=== PATIENT | female | born 1985 | race Two or more races ===

== ENCOUNTER 2016-11-16 09:12 | Observation (INO) | payer BC ==
--- NOTE | 2016-11-16 07:25 | PDGENHP ---
History and Physical History and Physical: Assessment and Plan: 1. Endometriosis determined by laparoscopy Melina has chronic pelvic pain mostly localized to the left lower quadrant. She was found to have several implants of endometriosis at the time of her hysterectomy last year. She does not wish to try Lupron or control pills again given the side effects she had previously. She also developed side effects on an antidepressant. We again reviewed all conservative and surgical options. At the end of our discussion, she is interested in surgical exploration. I will excise all lesions endometriosis seen. We have discussed the pros and cons of removing her remaining ovary depending upon other pathology identified. 2. Pelvic pain in female 3. Dyspareunia in female Subjective: Patient ID: Melina López is a 31 y.o. female who presents to [facility] for endometriosis. RAMONA Summers is a 31-year-old, para 2 woman who presents to discuss endometriosis. Both of her children were born vaginally. In 2014 she underwent a hysteroscopic removal of an imbedded Mirena IUD. In January of 2015 she developed pelvic pain and a persistent right ovarian cyst. Dr. Gaytan performed a robotic cystectomy. The pathology returned as a benign serous cystadenoma. No mention of endometriosis was noted. She then developed heavy menses and and dysmenorrhea and underwent a robotic hysterectomy with bilateral salpingectomy and right oophorectomy on 08/16/15. She was found to have endometriosis on the back of her uterus. Her left ovary remains. She was started on Lupron in August of 2015. She then was doing fairly well until May of 2016 when she developed recurrence of pain. This pain was slightly different than her pain before her hysterectomy. She had a normal pelvic ultrasound. Gastroenterology ordered a CT scan, which was reportedly normal. He recommended a colonoscopy, however, she declined. On September [address] Gaytan who recommended Lupron, control pills, or an SSRI. As mentioned, her pain became much more severe in May. It is localized in the left lower quadrant. The pain occurs with eating and when her bladder is full. She feels a constant pelvic pressure. She developed a squeezing sensation when her pain worsens. When it is most severe, it will radiate to her right hip and low-back. She does have some dyschezia, which feels like a different pain. She also has dyspareunia which feels in a similar left lower quadrant area. She has tried acupuncture twice. She lives in [place]. 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 She and her and for 16 years. PastMedicalHistory Past Medical History: Diagnosis Date Endometriosis PastSurgicalHistory Past Surgical History: Procedure Laterality Date DILATION AND CURETTAGE OF UTERUS EMBEDDED IUD REMOVAL HYSTERECTOMY 2016 Total- left ovary remains OVARIAN CYST REMOVAL PELVIC LAPAROSCOPY CURRENT MEDICATIONS: No current outpatient prescriptions on file. No current facility-administered medications for this visit. ALLERGIES: Review of patient's allergies indicates no known allergies. I have reviewed, verified and agree with the past medical, surgical, , family, social and ROS history as documented by the RN today. Review of Systems Objective: Vital Signs: Visit Vitals BP 112/64 Pulse 58 Temp 36.3 C (97.4 F) Resp 14 Ht 1.613 m (5' 3.5") Wt 88.7 kg (195 lb 9.6 oz) SpO2 97% BMI 34.11 kg/m2 Physical Exam Gen: This is an alert, well developed woman in no distress. Neuro: She moves all extremities. Psych: She is appropriate, oriented, with normal affect. Neck: No thyroid enlargement, adenopathy, or tenderness. Lungs: Clear to ascultation, no wheezes or rales. Heart: Regular rate and rhythm without obvious murmurs. Abdomen: Soft, non-tender, without guarding, rebound, or masses. Extremities: No edema or cyanosis. Pelvic: Normal external genitalia. Non-gaping introitus, vagina without discharge, adequately estrogenized, no significant prolapse. She is tender along both levator ani muscles. The vaginal apex is exquisitely tender limiting the bimanual exam. The posterior cul-de-sac is tender. All tender areas refer pain to the left lower quadrant. No obvious nodularity is palpable. DATA: I have reviewed patient's outside medical records. Summary findings include as noted above. TIME/COMMUNICATION: I personally spent a total of 50 minutes. Of that 40 minutes was counseling/ coordination of patient's care. See my note above for details. Rhett King MD Board Certified Female Pelvic Medicine and Reconstructive Surgery Director of Minimally Invasive Gynecologic Surgery, [facility] in Minimally Invasive Gynecologic Surgery Designee Instructions After Visit Summary (Printed 10/04/2016) Medications Reviewed As Of This Encounter Reviewed by Rhett King MD (Physician) on 11/15/16 at 2153 Medication Order Taking? Sig Documenting Provider Last Dose Status No Medications to Display Additional Documentation Vitals: BP 112/64 Pulse 58 Temp 36.3 C (97.4 F) Resp 14 Ht 1.613 m (5' 3.5") Wt 88.7 kg (195 lb 9.6 oz) SpO2 97% BMI 34.11 kg/m2 BSA 1.99 m2 More Vitals Flowsheets: Travel & Exposure Screen, HT/WT & Screenings, Custom Formula Data, Anthropometrics, Vitals & Pain, Vitals Reassessment ...(4 more) SmartForms: AMB PATIENT VISIT EVENTS Encounter Info: Billing Info, History, Allergies, Detailed Report, All Encounter Vitals Communications Letter sent to Zen Watson PT and 2 others Sent 11/15/2016 Orders Placed None Medication Changes None Medication List Visit Diagnoses Endometriosis determined by laparoscopy Pelvic pain in female Dyspareunia in female Problem List
[~2016-11-16 09:12] MED LIST: PHENAZOPYRIDINE HCL 200 MG TAB PO ONE; PHENAZOPYRIDINE HCL 200 MG TAB PO SCH; ceFAZolin 2 GM/DEXTROSE 100 ML IV ONE
[2016-11-16] MEDS ORDERED: LR 1,000 ML IV ONE (09:31)
[2016-11-16] MEDS ORDERED: LIDOCAINE 1% 2 ML INJ ID PRN (09:31)
[2016-11-16] MEDS ORDERED: LIDOCAINE 1% 2 ML INJ ONE (09:39)
[2016-11-16] MEDS ORDERED: PHENAZOPYRIDINE HCL 200 MG TAB ONE (09:46)
[2016-11-16] MEDS ORDERED: PROPOFOL 200 MG/20 ML VIAL ONE (10:19)
[2016-11-16] MEDS ORDERED: ROCURONIUM 100 MG/10 ML VIAL ONE (10:19)
[2016-11-16] MEDS ORDERED: MIDAZOLAM 2 MG/2 ML VIAL ONE (10:19)
[2016-11-16] MEDS ORDERED: DEXAMETHASONE 4 MG/ML VIAL ONE ×2 (10:19)
[2016-11-16] MEDS ORDERED: METOCLOPRAMIDE 10 MG/2 ML VIAL ONE (10:19)
[2016-11-16] MEDS ORDERED: BUPIVACAINE/EPI 0.5% 30 ML SDV ONE (10:30)
[2016-11-16] MEDS ORDERED: ONDANSETRON 4 MG/2 ML VIAL ONE ×2 (10:54→20:27)
--- NOTE | 2016-11-16 11:08 | PDANEPAE ---
ANE Past Medical History - Cardiovascular History Hx Hypertension: No Hx Arrhythmias: No Hx Chest Pain: No Hx Coronary Artery / Peripheral Vascular Disease: No Hx CHF / Valvular Disease: No Hx Palpitations: No - Pulmonary History Hx COPD: Yes Hx Asthma/Reactive Airway Disease: No Hx Recent Upper Respiratory Infection: No Hx Oxygen in Use at Home: No - Neurologic History Hx Cerebrovascular Accident: No Hx Seizures: No Hx Dementia: No - Endocrine History Hx Diabetes: No - Renal History Hx Renal Disorders: No - Liver History Hx Hepatic Disorders: No - Neurological & Psychiatric Hx Hx Neurological and Psychiatric Disorders: No - Cancer History Hx Cancer: No - GI History Hx Gastrointestinal Disorders: Yes - Chronic Pain History Chronic Pain: No ANE Review of Systems - Exercise capacity METS (RN): 4 METS - Systems Constitutional: Reports: other (morbid obesity) Respiratory: Reports: cough, wheezing, other (current smoker, cig addiction) ANE Patient History - Allergies Allergies/Adverse Reactions: No Known Allergies Allergy (Unverified 10/14/16 13:50) - Home Medications Home Medications: NK [No Known Home Meds] 10/14/16 [Last Taken Unknown] - NPO status NPO Since - Liquids (Date): 11/16/16 NPO Since - Liquids (Time): 05:30 NPO Since - Solids (Date): 11/15/16 NPO Since - Solids (Time): 21:00 - Smoking Hx Smoking Status: Former smoker - Family Anes Hx Family Hx Anesthesia Complications: NONE ANE Labs/Vital Signs - Vital Signs Blood Pressure: 110/80 Heart Rate: 62 Respiratory Rate: 16 O2 Sat (%): 92 Height: 160.02 cm Weight: 88.451 kg ANE Physical Exam - Airway Neck exam: increased neck circumference, short neck Mallampati Score: Class 3 Mouth exam: poor dentition, small mouth opening - Pulmonary Pulmonary: reduced air movement, expiratory wheeze, rhonchi - ASA Status ASA Status: III
[2016-11-16] MEDS ORDERED: HYDROmorphONE/DILAUDID 2 MG/ML INJ ONE (12:36)
[2016-11-16] MEDS ORDERED: HYDROmorphONE/DILAUDID 1 MG/ML SYR ONE ×2 (13:00→14:04)
[2016-11-16] MEDS ORDERED: fentaNYL 100 MCG/2 ML INJ ONE ×3 (13:00→14:04)
[2016-11-16] MEDS ORDERED: MEPERIDINE 25 MG/ML SYR IVP PRN (13:01)
[2016-11-16] MEDS ORDERED: OXYCODONE/APAP 5/325 TAB PO PRN (13:01)
[2016-11-16] MEDS ORDERED: NALOXONE HCL 0.4 MG/ML INJ IVP PRN (13:01)
[2016-11-16] MEDS ORDERED: LABETALOL HCL 50 MG/10 ML SYR IVP PRN (13:01)
[2016-11-16] MEDS ORDERED: ALBUTEROL 3 ML DEYVIAL IH PRN (13:01)
[2016-11-16] MEDS ORDERED: ONDANSETRON 4 MG/2 ML VIAL IVP PRN ×2 (13:01→20:20)
[2016-11-16] MEDS ORDERED: HYDROCODONE/APAP 5/325 TAB PO PRN (13:01)
[2016-11-16] MEDS ORDERED: ACETAMINOPHEN 500 MG TAB PO PRN (13:01)
[2016-11-16] MEDS: fentaNYL 100 MCG/2 ML INJ IVP PRN ×6 (13:03→14:23)
--- NOTE | 2016-11-16 13:03 | POSTANESTH ---
Post Anesthetic Evaluation Respiratory Status: Normal, Stable Level of Consciousness/Mental Status: Can Participate in Eval Pain Control: Adequate, Prn Tx Ordered Nausea/Vomiting Control: Adequate, Prn Tx Ordered Complications Possibly Related to Anesthesia: None Noted
[2016-11-16] MEDS: HYDROmorphONE/DILAUDID 1 MG/ML SYR IVP PRN ×5 (13:05→20:41)
[2016-11-16] MEDS ORDERED: DIAZEPAM 10 MG/2 ML SYR IVP PRN (13:14)
--- NOTE | 2016-11-16 13:19 | POSTOPPROG ---
Post Op Note Date of Operation: 11/16/16 Surgeon: Rhett King Pediatric Genetic Counselor: Perri Erwin Anesthesiologist: Francis Anesthesia: GET(General Endotracheal) Pre-op Diagnosis: Endometriosis, pelvic pain Post-op Diagnosis: Same Procedure: Robotic excision of endo, bilat ureterolysis, colpopexy, bilat oophorectomy Findings: endo, ureters function at end of case Inf/Abcess present in the surg proc area at time of surgery?: No EBL: Minimal Complications: None
[2016-11-16] MEDS: HYDROCODONE/APAP 5/325 TAB PO PRN ×2 (15:55→19:58)
[2016-11-16] MEDS: KETOROLAC 30 MG/1 ML SDV IVP SCH ×2 (17:14→23:27)
[2016-11-16] MEDS: PROMETHAZINE HCL 25 MG/ML INJ IVP PRN (23:18)
[2016-11-16] MEDS: SIMETHICONE 80 MG TAB CHEW PO SCH ×2 (23:40→23:54)
[2016-11-16] MEDS: DOCUSATE SODIUM 100 MG CAP PO SCH (23:57)
[2016-11-17] MEDS: ONDANSETRON DISINTEGRATING 4 MG TAB PO PRN ×2 (02:15→08:55)
[2016-11-17] MEDS: HYDROmorphONE/DILAUDID 1 MG/ML SYR IVP PRN ×2 (02:15→04:36)
[2016-11-17] MEDS: LR 1,000 ML IV SCH ×2 (02:16→05:55)
--- NOTE | 2016-11-17 05:36 | GOP ---
[f rep st] OPERATIVE REPORT DATE OF OPERATION: 11/16/2016 SURGEON: Rhett King MD MINT MACHINE OPERATOR: Perri Erwin CFA. ANESTHESIA: General. PREOPERATIVE DIAGNOSIS: 1. Endometriosis. 2. Pelvic pain. 3. Dysmenorrhea. 4. Vaginal cuff prolapse. 5. Urinary frequency. POSTOPERATIVE DIAGNOSIS: 1. Endometriosis. 2. Pelvic pain. 3. Dysmenorrhea. 4. Vaginal cuff prolapse. 5. Urinary frequency. 6. Rectal lesion. PROCEDURE PERFORMED: 1. Robotic excision of endometriosis throughout the posterior and anterior cul-de-sacs, as well as both ovarian fossae. 2. Bilateral ureterolysis. 3. Bilateral uterosacral ligament colpopexy. 4. Bilateral oophorectomy. 5. Cystoscopy. 6. Excision of rectal lesion. FINDINGS: SPECIMENS: Pelvic peritoneum with endometriosis and bilateral ovaries. ESTIMATED BLOOD LOSS: Scant DESCRIPTION OF PROCEDURE: The patient was taken to the operating room where she was identified. Ge neral anesthesia was administered and found to be adequate. She was placed in the lithotomy positio n and prepared and draped in normal sterile fashion. A Stoddard catheter was placed in her bladder. A 1 cm infraumbilical incision was made with the scalpel. The Veress needle with the CO2 gas flowin g was advanced into the peritoneal cavity. The abdomen was then insufflated with carbon dioxide gas . The 12 mm trocar followed by the laparoscope were then inserted. The upper abdomen was unremarka ble. There was no evidence of endometriosis on either diaphragm, liver or stomach. Two lateral por ts were placed in the right and 1 in the left under direct visualization. She then was placed in Tr endelenburg position and the da Aidee robot docked on the left side. The instruments were then brou ght into the abdominal cavity under direct visualization. The patient was found to have endometriosis on both ovaries, both ovarian fossae throughout the post erior cul-de-sac along the vaginal cuff as well as the anterior cul-de-sac. Attention was first turned to the posterior cul-de-sac. The entire posterior cul-de-sac peritoneum was excised from the distal rectum all the way up to the vaginal cuff and laterally to both uterosac ral ligaments. During this dissection lesion on the distal rectum required excision. This extended approximately 50% through the muscular layer. Attention was then turned to both ovarian fossae. There was endometriosis overlying both ureters. As a result, a bilateral ureterolysis was required. The peritoneum at the pelvic brims were incised . The ureter was gently dissected free. The ureters were then lateralized them from the overlying peritoneum and endometriosis all the way down to the bladder. Once was accomplished, the entire ovarian fossa peritoneum from the uterosacral ligaments anteriorly up to the anterior pelvis was completely excised bilaterally. Both ovaries were then removed. The infundibulopelvic vessels were skeletonized, cauterized, and transected. The remaining attachments were then excised. Final ly the anterior cul-de-sac peritoneum from the incision line along the vaginal cuff anteriorly to al most the pubic symphysis was completely excised. All specimens were then sent to pathology for perm anent section. A uterosacral ligament colpopexy was performed by attaching the lateral aspects of the vaginal cuff to the ipsilateral uterosacral ligaments near their insertion into the coccygeal-sacrospinous ligame nt complexes. The pelvis was then copiously irrigated with sterile saline and hemostasis was presen t. The robot was then undocked. The fascia was closed with 0 Vicryl, skin with 4-0 Monocryl and zelaya rgical adhesive. Cystoscopy was then performed. Both ureters had vigorous jets of urine. No evidence of bladder nor urethral injury seen. No obvious pathology was seen within the bladder explaining her urinary freq uency. Anesthesia was reversed and the patient taken to PACU awake, in stable condition. COMPLICATIONS: None. DISPOSITION: Patient stable to PACU. /[id number]/MODL
[2016-11-17] MEDS: KETOROLAC 30 MG/1 ML SDV IVP SCH (05:55)
[2016-11-17] MEDS: SIMETHICONE 80 MG TAB CHEW PO SCH ×2 (06:19→15:52)
[2016-11-17] MEDS: DOCUSATE SODIUM 100 MG CAP PO SCH (06:19)
[2016-11-17] MEDS ORDERED: HYDROmorphONE/DILAUDID 2 MG TAB PO PRN (08:59)
[2016-11-17] MEDS ORDERED: ONDANSETRON DISINTEGRATING 4 MG TAB PO PRN (08:59)
[2016-11-17] MEDS ORDERED: OXYCODONE/APAP 5/325 TAB PO PRN (08:59)
[2016-11-17] MEDS ORDERED: SCOPOLAMINE HYDROBROMIDE 1.5 MG PATCH TD SCH (09:00)
[2016-11-17] MEDS ORDERED: CALCIUM CARBONATE 500 MG CHEWABLE TAB PO PRN (09:05)
--- NOTE | 2016-11-17 09:05 | SOAPPROG ---
SOAP Progress Note Assessment/Plan: Assessment: Pain normal, nausea appears to me from anesthesia and surgery. HR 80's now. Plan: 11/17/16 09:02 Try to advance diet and switch to p.o. meds for home. Likely home later today. Pt to call in 2 weeks. 11/17/16 09:04 Subjective: Complaining of nausea unable to take p.o. meds. Void x 1. Pain controlled with i.v. meds. Objective: Vital Signs Temp Pulse Resp BP Pulse Ox 36.2 C 119 H 16 132/90 H 92 11/17/16 06:04 11/17/16 06:04 11/17/16 06:04 11/17/16 06:04 11/17/16 06:04 11/16/16 11/17/16 11/18/16 05:59 05:59 05:59 Intake Total 2815 Output Total 2020 Balance 795 - Pending Discharge Pending Discharge Within 24 Hours: Yes Pending Discharge Date: 11/18/16 Pending Discharge Time: 11:00 Physical Exam - Physical Exam General Appearance: WD/WN, alert, no apparent distress Respiratory: lungs clear Cardiac/Chest: regular rate, rhythm Abdomen: normal bowel sounds, non-tender, soft (Incisions clean, dry, and intact.) ICD10 Worksheet Patient Problems: Problems Problem Status Onset Endometriosis of pelvic peritoneum Acute - ICD10 Problem Qualifiers (1) Endometriosis of pelvic peritoneum
[2016-11-17] MEDS: PROMETHAZINE HCL 25 MG/ML INJ IVP PRN (10:10)
[2016-11-17] MEDS ORDERED: FAMOTIDINE 20 MG TAB PO ONE (13:00)
[2016-11-17] MEDS ORDERED: IBUPROFEN 200 MG TAB PO ONE (13:00)
[2016-11-17 13:09] VITALS: RESP 20; TEMP 97.9
[2016-11-17 14:13] VITALS: BP 144/88
[2016-11-17 14:14] VITALS: PULSE 94; O2SAT 93
--- NOTE | 2016-11-18 06:30 | GDS ---
[f rep st] DISCHARGE SUMMARY DISCHARGE DIAGNOSES: 1. Pelvic pain. 2. Endometriosis. PROCEDURES: 1. Robotic excision of extensive endometriosis throughout anterior and posterior cul-de-sac, as wel l as both ovarian fossa. 2. Bilateral ureterolysis. 3. Bilateral uterosacral ligament colpopexy. 4. Bilateral oophorectomy. 5. Cystoscopy. HISTORY: The patient is a 31-year-old female with a long history of pelvic pain and endometriosis. She previously had undergone a hysterectomy last year with a different provider. Unfortunately, no endometriosis was excised. She had recurrent pelvic pain and was taken to the operating room on , where she underwent complete excision of all peritoneum with endometriosis, which involves almost the entire pelvis. Both of her ovaries were also removed. Her postoperative course was complicated only by nausea making conversion to oral pain medication de layed. Over on the afternoon of postoperative day #1, she was ambulating, voiding, and tolerating a general diet. She was discharged home on postoperative day #1 in good condition. Medications inclu ded [place] and ibuprofen for pain, as well as Phenergan for nausea. She is to follow up in the [facility] e 2 weeks after discharge. /[id number]/MODL
== END 2016-11-17 13:35 | disposition home or self-care (01) ==
LOC: FSGY 09:12 → FOB 15:02
PROVIDERS: ADMIT Obstetrics & Gynecology; ATTEND Obstetrics & Gynecology
DX: N80.3 Endometriosis of pelvic peritoneum (principal); N80.1 Endometriosis of ovary; R10.2 Pelvic and perineal pain; K91.89 Other postprocedural complications and disorders of digestive system; N94.10 Unspecified dyspareunia; N99.3 Prolapse of vaginal vault after hysterectomy; R35.0 Frequency of micturition; K62.89 Other specified diseases of anus and rectum; Z90.710 Acquired absence of both cervix and uterus
CPT/HCPCS: 57425; 58661; 58662; G0378; J0690; J1100; J1170; J1885; J2250; J2405; J2550; J2704; J2765; J3010

== ENCOUNTER 2017-09-20 04:52 | Observation (INO) | payer OTHER, MEDICAID ==
--- NOTE | 2017-09-16 21:36 | PDGENHP ---
History and Physical History and Physical: Assessment and Plan: 1. Pelvic pain in female Melina continues to suffer from chronic pelvic pain. It is difficult to tell if she has some recurrent endometriosis or if any of her symptoms are contributed by her prior hemoperitoneum. Much of her symptoms are not consistent with adhesive disease Unfortunately she has received little benefit from her many and varied treatments, I would like her to see rheumatology. At the en of our lengthy discussion she wishes to undergo repeat laparoscopy to look for any pelvic pathology. 2. Dyspareunia in female 3. Endometriosis determined by laparoscopy Subjective: Patient ID: Melina López is a 32 y.o. female who presents to [facility] for pelvic pain. HPI Melina underwent robotic excision of endometriosis and bilateral oophorectomy in October 2016. Unfortunately she continues to have some recurrent pain. She saw Dr. Valadez who thought she may have issues with her ilioinguinal nerve. He plans on injecting it at the end of August. However he does not think this is contributing to all of her pain certainly. She has undergone pelvic floor physical therapy transanally which has helped some. However her hypertonus returns almost immediately. It is a difficult to urinate. She has developed some stress incontinence. She continues to have central and right lower quadrant pain. Dr. Valadez think she may have some adhesions contributing to the pain. Her prior laparoscopy had a postoperative complication of a hemoperitoneum. She hurts when she is driving long distances as well as prolonged standing. She underwent evaluation by automated teller manager including a colonoscopy. Apparently her workup was unremarkable. She has been on Lyrica and Cymbalta without great benefit. She has tried antispasmodics through gastroenterology as well as vaginal Valium. She has not yet seen a router operator given her whole body symptoms including some joint pain and muscle ache. She has tried narcotics as well as tramadol. She is being seen by a chronic pain specialist. PastMedicalHistory Past Medical History: Diagnosis Date Endometriosis PastSurgicalHistory Past Surgical History: Procedure Laterality Date COLONOSCOPY DILATION AND CURETTAGE OF UTERUS EMBEDDED IUD REMOVAL HYSTERECTOMY 2016 Total- left ovary remains OVARIAN CYST REMOVAL OVARY REMOVAL 11/16/2016 PELVIC LAPAROSCOPY CURRENT MEDICATIONS: Current Outpatient Prescriptions Medication Sig amitriptyline (ELAVIL) 10 mg tablet Take 1 tablet by mouth nightly at bedtime for Neuropathic Pain. diazePAM (VALIUM) 5 mg tablet Crush 1 - 2 tablets and rub into vaginal tissues 30 minutes before pelvic physical therapy and intercourse diphenhydrAMINE (BENADRYL) 2 % cream Apply topically 3 times daily as needed for Itching for Pruritus of Skin. DULoxetine (CYMBALTA) [address] capsule Take 1 capsule by mouth 2 times daily for major depressive disorder, Neuropathic Pain. estradiol (ESTRACE) 1 mg tablet Take 1 tablet by mouth daily. norethindrone (AYGESTIN) 5 mg tablet Take 1 tablet by mouth daily. pregabalin (LYRICA) 75 mg capsule Take 1 capsule by mouth 2 times daily for chronic pelvic pain. traMADol (ULTRAM) 50 mg tablet Take 1 tablet by mouth every 6 hours as needed for Neuropathic Pain. NIRMAL BRIAN No current facility-administered medications for this visit. ALLERGIES: Patient has no known allergies. I have reviewed, verified and agree with the past medical, surgical, , family, social and ROS history as documented by the RN today. Objective: Vital Signs: Visit Vitals BP 118/86 Pulse 55 Temp 36.4 C (97.6 F) (Temporal Artery) Resp 14 Ht 1.613 m (5' 3.5") Wt 72.1 kg (159 lb) SpO2 93% BMI 27.72 kg/m Physical Exam Gen: This is an alert, well developed woman in no distress. Neuro: She moves all extremities. Psych: She is appropriate, oriented, with normal affect. Neck: No thyroid enlargement, adenopathy, or tenderness. Lungs: Clear to ascultation, no wheezes or rales. Heart: Regular rate and rhythm without obvious murmurs. Abdomen: Soft, non-tender, without guarding, rebound, or masses. Extremities: No edema or cyanosis. Pelvic: Normal external genitalia. Non-gaping introitus, vagina without discharge, adequately estrogenized, no significant prolapse. The apex is tender , slightly more on the right. Pelvic floor muscles are also tender. DATA: I have reviewed the pertinent medical records. TIME/COMMUNICATION: I personally spent a total of 40 minutes. Of that 30 minutes was counseling/ coordination of patient's care. See my note above for details. Rhett King MD Board Certified Female Pelvic Medicine and Reconstructive Surgery Director of Minimally Invasive Gynecologic Surgery, [facility] Surgeon in Minimally Invasive Gynecologic Surgery [facility] Surgeon in Robotic Surgery
[2017-09-20] MEDS ORDERED: ACETAMINOPHEN 500 MG TAB PO ONE (05:52)
[2017-09-20] MEDS ORDERED: GABAPENTIN 400 MG CAP PO ONE (05:52)
[2017-09-20] MEDS ORDERED: PHENAZOPYRIDINE HCL 200 MG TAB PO ONE (05:52)
[2017-09-20] MEDS ORDERED: ceFAZolin 2 GM/SWFI 2 GM/20 ML SYR IVP ONE (05:52)
[2017-09-20] MEDS ORDERED: LR 1,000 ML IV ONE ×2 (06:18→06:22)
[2017-09-20] MEDS ORDERED: LIDOCAINE 1% 2 ML INJ ID PRN (06:22)
[2017-09-20] MEDS ORDERED: LIDOCAINE 1% 2 ML INJ ONE (06:24)
[2017-09-20] MEDS ORDERED: BUPIVACAINE/EPI 0.5% 30 ML SDV ONE (06:35)
--- NOTE | 2017-09-20 07:07 | PDHPUP ---
History & Physical Update H&P update statement: This history and physical update is based on an assessment of the patient which was completed after admission or registration (within 24 hours), but prior to the surgery/procedure. H&P update: H&P reviewed & patient examined, no change in patient's condition since H&P completed
[2017-09-20] MEDS ORDERED: PROPOFOL/EMULSION 500 MG/50 ML BOTTLE IV ONE (07:21)
[2017-09-20] MEDS ORDERED: fentaNYL 100 MCG/2 ML INJ ONE ×2 (07:21→08:58)
[2017-09-20] MEDS ORDERED: MIDAZOLAM 2 MG/2 ML VIAL ONE (07:21)
[2017-09-20] MEDS ORDERED: PROPOFOL 200 MG/20 ML VIAL ONE ×2 (07:38→07:55)
[2017-09-20] MEDS ORDERED: REMIFENTANIL HCL 1 MG VIAL ONE (07:41)
[2017-09-20] MEDS ORDERED: RANITIDINE 50 MG/2 ML VIAL ONE (07:45)
[2017-09-20] MEDS ORDERED: LIDOCAINE 2% 5 ML SDV ONE (07:45)
[2017-09-20] MEDS ORDERED: DEXAMETHASONE 4 MG/ML VIAL ONE (07:45)
[2017-09-20] MEDS ORDERED: SUGAMMADEX SODIUM 200 MG/2 ML VIAL IVP ONE (07:45)
[2017-09-20] MEDS ORDERED: ROCURONIUM 50 MG/5 ML VIAL ONE (07:45)
[2017-09-20] MEDS ORDERED: METOCLOPRAMIDE 10 MG/2 ML VIAL ONE (07:45)
[2017-09-20] MEDS ORDERED: ONDANSETRON 4 MG/2 ML VIAL ONE (07:45)
[2017-09-20] MEDS ORDERED: ALBUTEROL HFA ANES ONLY 200 PUFFS/8.5 GM MDI IH ONE (07:53)
[2017-09-20] MEDS ORDERED: ALBUTEROL 3 ML DEYVIAL IH PRN (08:09)
[2017-09-20] MEDS ORDERED: LR 500 ML IV PRN (08:09)
[2017-09-20] MEDS ORDERED: NALOXONE HCL 0.4 MG/ML INJ IVP PRN (08:09)
[2017-09-20] MEDS ORDERED: ONDANSETRON 4 MG/2 ML VIAL IVP PRN (08:09)
[2017-09-20] MEDS ORDERED: DEXAMETHASONE 4 MG/ML VIAL IVP PRN (08:09)
--- NOTE | 2017-09-20 08:09 | PDANEPAE ---
ANE Past Medical History - Cardiovascular History Hx Hypertension: No Hx Arrhythmias: No Hx Chest Pain: No Hx Coronary Artery / Peripheral Vascular Disease: No Hx CHF / Valvular Disease: No Hx Palpitations: No - Pulmonary History Hx COPD: Yes Hx Asthma/Reactive Airway Disease: No Hx Recent Upper Respiratory Infection: No Hx Oxygen in Use at Home: No Hx Sleep Apnea: No Sleep Apnea Screening Result - Last Documented: Negative - Neurologic History Hx Cerebrovascular Accident: No Hx Seizures: No Hx Dementia: No - Endocrine History Hx Diabetes: No - Renal History Hx Renal Disorders: No - Liver History Hx Hepatic Disorders: No - Neurological & Psychiatric Hx Hx Neurological and Psychiatric Disorders: Yes Neurological / Psychiatric History Comment: inguinal nerve blocks. anxiety, depression. CLUSTER HEADACHES - Cancer History Hx Cancer: No - GI History Hx Gastrointestinal Disorders: Yes Gastrointestinal History Comment: diverticulosis - Other Health History Other Health History: tinnitus. tight jaw TMJ - Chronic Pain History Chronic Pain: Yes (OUTER THIGH DRY NEEDLING,FIBROMYALGIA) - Surgical History Prior Surgeries: LAPAROSCOPY X2. CYST REMOVAL OVARY. IUD REMOVAL. HYSTETERECTOMY 07/2015 ANE Review of Systems Review of Systems: - Exercise capacity METS (RN): 5 METS ANE Patient History - Allergies Allergies/Adverse Reactions: No Known Allergies Allergy (Verified 08/30/17 15:20) - Home Medications Home Medications: Cymbalta 08/30/17 [Last Taken 09/19/17 19:30] Ibuprofen 08/30/17 [Last Taken 02/28/17] Lyrica 08/30/17 [Last Taken 09/19/17 19:30] Tylenol 325mg (*) 08/30/17 [Last Taken 09/19/17 19:30] - NPO status NPO Since - Liquids (Date): 09/19/17 NPO Since - Liquids (Time): 00:00 NPO Since - Solids (Date): 09/19/17 NPO Since - Solids (Time): 22:00 - Smoking Hx Smoking Status: Former smoker - Family Anes Hx Family Hx Anesthesia Complications: NONE ANE Labs/Vital Signs - Vital Signs Blood Pressure: 134/83 Heart Rate: 73 Respiratory Rate: 18 O2 Sat (%): 95 Height: 161.29 cm Weight: 63.503 kg ANE Physical Exam - Airway Neck exam: decreased ROM, increased neck circumference Mallampati Score: Class 2 Mouth exam: poor dentition - Pulmonary Pulmonary: no respiratory distress, no rales or rhonchi, reduced air movement - Cardiovascular Cardiovascular: regular rate and rhythym, no murmur, rub, or gallop - ASA Status ASA Status: III (Patient with central sleep apnea, COPD, MS or fibromyalgia) ANE Anesthesia Plan Anesthesia Plan: general endotracheal anesthesia
[2017-09-20] MEDS ORDERED: PROMETHAZINE HCL 25 MG/ML INJ IVP PRN (08:50)
[2017-09-20] MEDS ORDERED: HYDROmorphONE/DILAUDID 1 MG/ML INJ IVP PRN (08:50)
--- NOTE | 2017-09-20 08:50 | POSTOPPROG ---
Post Op Note Date of Operation: 09/20/17 Surgeon: Rhett King Advanced Practice Psychiatric Nurse: Perri Erwin Anesthesiologist: [place] Anesthesia: GET(General Endotracheal) Pre-op Diagnosis: Endomteriosis, pelvic pain Post-op Diagnosis: same Procedure: Robotic excision of endo, bilat ureterolyisi, rectal lesion Findings: Endo Inf/Abcess present in the surg proc area at time of surgery?: No EBL: Minimal Complications: None Specimen(s): Endometriosis
[2017-09-20] MEDS ORDERED: ONDANSETRON DISINTEGRATING 4 MG TAB PO PRN (08:51)
[2017-09-20] MEDS: fentaNYL 100 MCG/2 ML INJ IVP PRN ×2 (08:59→09:04)
[2017-09-20] MEDS ORDERED: LR 1,000 ML IV SCH (09:00)
[2017-09-20] MEDS ORDERED: DIAZEPAM 5 MG/ML 1 ML SYR ONE (09:09)
[2017-09-20] MEDS: DIAZEPAM 5 MG/ML 1 ML SYR IVP PRN ×2 (09:11→09:29)
--- NOTE | 2017-09-20 09:39 | GOP ---
[f rep st] OPERATIVE REPORT DATE OF OPERATION: 09/20/2017 SURGEON: Rhett King MD HOISTING ENGINEER: BHAVESH Brooks. ANESTHESIA: General. PREOPERATIVE DIAGNOSIS: 1. Endometriosis. 2. Pelvic pain. POSTOPERATIVE DIAGNOSIS: 1. Endometriosis. 2. Pelvic pain. PROCEDURE PERFORMED: 1. Robotic excision of endometriosis on bilateral pelvic side de los santos, vaginal cuff and posterior cul- de-sac. 2. Excision of rectal lesion. 3. Bilateral ureterolysis. FINDINGS: SPECIMENS: Endometriosis. ESTIMATED BLOOD LOSS: Scant. DESCRIPTION OF PROCEDURE: The patient was taken to the operating room, she was identified. General anesthesia was administered and found to be adequate. She was placed in the lithotomy position and p repared and draped in normal sterile fashion. A Stoddard catheter was placed in her bladder. A 1 cm infraumbilical incision was made with a scalpel. The Veress needle with the CO2 gas flowing w as advanced into the peritoneal cavity. The abdomen was then insufflated with carbon dioxide gas. T he 12 mm trocar followed by the laparoscope were then inserted. The upper abdomen was unremarkable. There was no evidence of endometriosis anywhere above the umbilicus. Two lateral ports were placed in the right and one on the left under direct visualization. The patient was then placed in [place] position and the da Aidee robot docked on the left side. The instruments were then brought int o the abdominal cavity under direct visualization. She had multiple areas of what appeared to be end ometriosis on the pelvic brim bilaterally near the external iliac artery. She had an enlarged lymph node near the left external iliac artery which appeared to have endometriosis. She had multiple lesi ons overlying both ureters, on the rectum, as well as the vaginal cuff. The lesion on the rectum was excised. This extended approximately 30% to 50% through the muscular layers. A 2nd rectal lesion w as then excised. The lesions in the posterior cul-de-sac were excised. A bilateral ureterolysis was required to excise the lesions overlying both ureters. The peritoneum at the pelvic brim was incise d. The ureters were gently dissected free. They had surrounding fibrosis from her prior surgeries. They were lateralized off the overlying peritoneum and endometriosis from the pelvic brim down to th e uterine arteries. Once this was accomplished, the overlying endometriosis was completely excised. All the lesions near the vaginal cuff were then likewise excised. All specimens were sent to Pathol ogy for permanent section. The pelvis was irrigated with sterile saline, and hemostasis was present. The robot was then undocked. The fascia was closed with 0 Vicryl, skin with 4-0 Monocryl and surgi nikhil adhesive. Anesthesia was reversed and patient to PACU awake, in stable condition. COMPLICATIONS: None. DISPOSITION: Patient stable to PACU. /[id number]/MODL
--- NOTE | 2017-09-20 09:47 | POSTANESTH ---
Post Anesthetic Evaluation Cardiovascular Status: Normal, Stable, Similar to Pre-Op Cond Respiratory Status: Normal, Stable, Similar to Pre-op Cond. Level of Consciousness/Mental Status: Can Participate in Eval Pain Control: Adequate, Prn Tx Ordered Nausea/Vomiting Control: Adequate, Prn Tx Ordered Complications Possibly Related to Anesthesia: None Noted
[2017-09-20] MEDS ORDERED: ALBUTEROL 60 PUFFS/8 GM MDI IH PRN (12:41)
[2017-09-20] MEDS: HYDROmorphONE/DILAUDID 2 MG TAB PO PRN ×3 (13:03→21:24)
[2017-09-20] MEDS: KETOROLAC 30 MG/1 ML SDV IVP SCH ×3 (16:27→22:46)
[2017-09-20] MEDS: SIMETHICONE 80 MG TAB CHEW PO SCH ×4 (16:35→21:24)
[2017-09-20] MEDS ORDERED: HYDROmorphONE/DILAUDID 2 MG/ML INJ IVP PRN (20:00)
[2017-09-20] MEDS ORDERED: DULoxetine 60 MG CAP PO SCH (21:00)
[2017-09-20] MEDS: PREGABALIN 75 MG CAP PO SCH (21:24)
[2017-09-20] MEDS: DULoxetine 60 MG CAP PO SCH (22:46)
[2017-09-21] MEDS: HYDROmorphONE/DILAUDID 2 MG TAB PO PRN ×3 (01:26→09:38)
[2017-09-21] MEDS: KETOROLAC 30 MG/1 ML SDV IVP SCH ×2 (04:38→10:42)
--- NOTE | 2017-09-21 07:52 | SOAPPROG ---
SOAP Progress Note Assessment/Plan: Assessment: Doing well. No issues. Plan: 09/21/17 07:50 Discharge home. Home oxygen set up by PCP Instructions reviewed. F/U in 2 weeks. Subjective: No complaints. Ambulating, void, smitha gen diet. Pain controlled. Objective: Vital Signs Temp Pulse Resp BP Pulse Ox 36.4 C 47 L 16 113/70 94 09/21/17 04:00 09/21/17 04:00 09/21/17 04:00 09/21/17 04:00 09/21/17 04:00 09/20/17 09/21/17 09/22/17 05:59 05:59 05:59 Intake Total 2380 Output Total 1470 Balance 910 Physical Exam - Physical Exam General Appearance: WD/WN, alert, no apparent distress Respiratory: lungs clear Cardiac/Chest: regular rate, rhythm Abdomen: normal bowel sounds, non-tender, soft Skin: normal color, warm/dry (Incisions clean, dry, and intact.) ICD10 Worksheet Patient Problems: Problems Problem Status Onset Endometriosis of pelvic peritoneum Acute
--- NOTE | 2017-09-21 08:28 | GDS ---
[f rep st] DISCHARGE SUMMARY DISCHARGE DIAGNOSIS: 1. Endometriosis. 2. Pelvic pain. PROCEDURES: 1. Robotic excision of endometriosis. 2. Excision of rectal lesion. 3. Bilateral ureterolysis. HISTORY: Melina is a 32-year-old female with a long history of endometriosis. She was taken to the operating room on 09/20/2017, where she underwent the above-mentioned procedures. She was kept overn ight given her recent history of low oxygen saturations while sleeping. She had her home oxygen deli [place]. Overnight, she did have an O2 requirement in the hospital. On postoperative day #1, she was ambulating, voiding, and tolerating a general diet. She was discharged home with Dilaudid and ibupro fen for pain. She has a followup appointment in 2 weeks. Her home oxygen is to be delivered this af tess. /[id number]/MODL
[2017-09-21] MEDS: SIMETHICONE 80 MG TAB CHEW PO SCH (09:06)
[2017-09-21] MEDS: PREGABALIN 75 MG CAP PO SCH (09:06)
[2017-09-21] MEDS: DULoxetine 60 MG CAP PO SCH (09:15)
[2017-09-21 10:30] VITALS: BP 119/82
== END 2017-09-21 12:55 | disposition home or self-care (01) ==
LOC: FSGY 04:52 → F3E 08:51 → FOB 10:54
PROVIDERS: ADMIT Obstetrics & Gynecology; ATTEND Obstetrics & Gynecology
DX: N80.3 Endometriosis of pelvic peritoneum (principal); D36.0 Benign neoplasm of lymph nodes; R10.2 Pelvic and perineal pain; N94.10 Unspecified dyspareunia; Z90.722 Acquired absence of ovaries, bilateral; Z90.710 Acquired absence of both cervix and uterus
CPT/HCPCS: 58662; G0378; J0690; J1100; J1170; J1885; J2250; J2270; J2405; J2704; J2765; J2780; J3010; J3360